=== PATIENT | female | born 1990 | race Hispanic/Latino ===

== ENCOUNTER 2019-09-24 17:47 | Outpatient (CLI) | payer MEDICAID ==
[2019-09-24] MEDS ORDERED: BUTALB/ACETAMINOPHEN/CAFFEINE TAB PO ONE (18:11)
[2019-09-24 19:02] VITALS: BP 128/88
== END 2019-09-24 20:10 | disposition home or self-care (01) ==
LOC: TRG 17:47
PROVIDERS: ATTEND Obstetrics & Gynecology
DX: O47.03 False labor before 37 completed weeks of gestation, third trimester (principal); Z3A.34 34 weeks gestation of pregnancy
CPT/HCPCS: Q0177

== ENCOUNTER 2019-09-26 15:39 | Outpatient (CLI) | payer MEDICAID ==
[2019-09-26] MEDS ORDERED: METOCLOPRAMIDE 10 MG/2 ML INJ IV ONE (16:04)
[2019-09-26] MEDS ORDERED: diphenhydrAMINE 50 MG/ML VIAL IV ONE (16:04)
[2019-09-26 16:50] LABS: Bacteria,Urine 1+ /HPF (Negative); Bilirubin,Urine NEG (Negative); Blood,Urine NEG (Negative); Color,Urine Amber (Yellow); Mucus,Urine 1+ /HPF
[2019-09-26] MEDS: LACTATED RINGERS 1,000 ML IV SCH ×2 (16:54→17:13)
[2019-09-26] MEDS ORDERED: LACTATED RINGERS 1,000 ML IV SCH (17:00)
--- NOTE | 2019-09-26 17:30 | Event Note ---
Date: 09/26/19 Patient reports Migraine relief is the best she had in 5 days, reports pain is down from 7/10 to 4/10 after reglan and benadryl. Pt does not currently have neurologist - referral entered in to office chart and info given to patient. Will continue IVF hydration and d/t home as long as patient continues to have good relief and PIH bloodwork is normal. FHT Cat 1, no ctx noted. pt agrees with plan of care.
[2019-09-26 17:48] LABS: Alanine Aminotransferase 12 units/L (7-56); Uric Acid 5.2 mg/dL (3.5-7.6)
[2019-09-26 17:59] VITALS: BP 117/71
[2019-09-26 18:26] LABS: Hematocrit 34.7 % (30.3-42.9); Hemoglobin 11.8 gm/dl (10.1-14.3); Mean Corpuscular HGB Conc 34 % (30-34); Mean Corpuscular Volume 92 fl (79-97); Platelet Count 177 K/mm3 (140-440); Red Blood Count 3.78 M/mm3 (3.65-5.03); Red Cell Distribution Width 13.2 % (13.2-15.2)
== END 2019-09-26 18:51 | disposition home or self-care (01) ==
LOC: TRG 15:39
PROVIDERS: ATTEND Obstetrics & Gynecology
DX: O99.353 Diseases of the nervous system complicating pregnancy, third trimester (principal); G43.909 Migraine, unspecified, not intractable, without status migrainosus; O47.03 False labor before 37 completed weeks of gestation, third trimester; O99.333 Smoking (tobacco) complicating pregnancy, third trimester; F17.200 Nicotine dependence, unspecified, uncomplicated; Z3A.34 34 weeks gestation of pregnancy
CPT/HCPCS: 36415; 59025; 81001; 82565; 83615; 84450; 84460; 84550; 85027; 87086; 96361; 96374; 96375; J1200; J2765; J7120; 96360

== ENCOUNTER 2019-10-30 07:30 | Inpatient (IN) | payer MEDICAID ==
[2019-11-06] MEDS ORDERED: TERBUTALINE 1 MG/1 ML INJ SUB-Q PRN (14:44)
[2019-11-06] MEDS ORDERED: ePHEDrine SULFATE 50 MG/1 ML INJ IV PRN (14:44)
[2019-11-06] MEDS ORDERED: MINERAL OIL 30 ML ORAL LIQD PO PRN (14:44)
[2019-11-06] MEDS ORDERED: ONDANSETRON 4 MG/2 ML INJ IV PRN (14:54)
[2019-11-06] MEDS ORDERED: OXYTOCIN 20 UNIT/1000ML DRIP 20 UNITS/1,000 ML BAG IV SCH (15:00)
[2019-11-06] MEDS ORDERED: OXYTOCIN DRIP 30 UNITS/500 ML BAG IV SCH (15:00)
[2019-11-06] MEDS ORDERED: AMPICILLIN/NS 2 GM/100 ML 2 GM/100 ML BAG IV ONE (15:05)
--- NOTE | 2019-11-06 15:17 | History and Physical Report ---
History of Present Illness Date of examination: 11/06/19 (IOL d/t Poly per [facility] recommendation) Date of admission: 11/06/19 14:33 Chief complaint: sent from [facility] office for IOL History of present illness: EDC Confirmation: 11/05/2019 Gestational Age: 11 4/7 weeks Past History : 1 Past Medical History: Reviewed history from 01/14/2017 and no changes required: Iccthyosis. 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 Infection History Hx of STD: chlamydia HIV Risk Eval: no Hepatitis B Risk Eval: low risk Personal hx. of genital herpes: no Partner hx. of genital herpes: no Rash, Viral, or Febrile illness since last LMP? no Varicella/Chicken Pox Status: Previous Disease Genetic History Congenital Heart Defect: Mom: no Sri Disease: Mom: no Thalassemia Mom: no Dad: no Neural Tube Defect Mom: no Dad: no Down's Syndrome Mom: no Dad: no Dom-Sachs Mom: no Dad: no Sickle Cell Disease/Trait Mom: no Dad: no Hemophilia Mom: no Dad: no Muscular Dystrophy Mom: no Dad: no Cystic Fibrosis Mom: no Dad: no [place] Chorea Mom: no Dad: no Mental Retardation Mom: no Dad: no Fragile X Mom: no Dad: no Other Genetic/Chromosomal Disorder Mom: no Dad: no Child w/other defect Mom: no Dad: no Enviromental Exposures Xray Exposure: no Medication, drug, or alcohol use since LMP: no Chemical/Other Exposure: no Exposure to Cat Liter: no Hx of Parvovirus (Fifth Disease): no Occupational Exposure to Children: none Active Medications (reviewed today): AMBIEN TABLET (ZOLPIDEM TARTRATE TABS) LEVORA 0.15/30 (28) 0.15-30 MG-MCG ORAL TABLET (LEVONORGESTREL-ETHINYL ESTRAD) 1 po q day as directed LEVORA 0.15/30 (28) 0.15-30 MG-MCG ORAL TABLET (LEVONORGESTREL-ETHINYL ESTRAD) 1 po q day as directed XANAX () Current Allergies (reviewed today): TRAMADOL HCL (TRAMADOL HCL TABS) (Critical) Past History - Obstetrical History Expected Date of Delivery: 11/05/19 Actual Gestation: 40 Week(s) 1 Day(s) : 1 Para: 0 Hx # Term Pregnancies: 0 Number of Pregnancies: 0 Spontaneous Abortions: 0 Induced : 0 Number of Living Children: 0 Medications and Allergies Allergies Allergy/AdvReac Type Severity Reaction Status Date / Time No Known Allergies Allergy Verified 09/26/19 16:03 Home Medications Medication Instructions Recorded Confirmed Last Taken Type Metoclopramide [Reglan] 10 mg PO PRN PRN #30 tab 09/26/19 11/06/19 10/30/19 Rx 10 mg Active Meds: Active Medications Ephedrine Sulfate (Ephedrine Sulfate) 10 mg IV Q2M PRN PRN Reason: Hypotension Oxytocin/Sodium Chloride (Pitocin/Ns 20 Unit/1000ml Drip) 20 units in 1,000 mls @ 125 mls/hr IV DIRECT BATOOL Oxytocin/Sodium Chloride (Pitocin/Ns 30 Unit/500ml) 30 units in 500 mls @ 4 mls/hr IV TITR BATOOL; Protocol Mineral Oil (Mineral Oil) 30 ml PO QHS PRN PRN Reason: Constipation Terbutaline Sulfate (Brethine) 0.25 mg SUB-Q ONCE PRN PRN Reason: Hyperstimulation/Hypertonicity - Physical Exam Breasts: Positive: deferred Cardiovascular: Regular rate, Normal S1, Normal S2 Abdomen: Positive: normal appearance, soft, normal bowel sounds. Negative: distention, tenderness Genitourinary (Female): Positive: normal external genitalia Vulva: both: normal Vagina: Positive: normal moisture. Negative: discharge Cervix: Negative: lesion, discharge Uterus: Positive: normal size, normal contour Adnexa: both: normal Anus/Rectum: Positive: normal perianal skin, heme negative. Negative: rectal mass, hemorrhoids Extremities: Positive: normal Deep Tendon Reflex Grade: Normal +2 - Obstetrical FHR: category 1 Uterine Contraction Monitor Mode: External Cervical Dilatation: 0.5 Cervical Effacement Percentage: 10 station: -4 Uterine Contraction Pattern: Absent Uterine Tone Measurement Phase: Resting Results All other labs normal. GBS POSITIVE HBsAg Screen Negative Negative *1 RPR Non Reactive Non Reactive *2 Rubella Antibodies, IgG 10.50 index Immune >0.99 *3 Non-immune <0.90 Equivocal 0.90 - 0.99 Immune >0.99 ABO Grouping B *4 Rh Factor Positive *5 Please note: Prior records for this patient's ABO / Rh type are not available for additional verification. Antibody Screen Negative Negative *6 WBC 10.5 x10E3/uL 3.4-10.8 *7 RBC 4.33 x10E6/uL 3.77-5.28 *8 Hemoglobin 13.7 g/dL 11.1-15.9 *9 Hematocrit 40.6 % 34.0-46.6 *10 MCV 94 fL 79-97 *11 MCH 31.6 pg 26.6-33.0 *12 MCHC 33.7 g/dL 31.5-35.7 *13 RDW 13.0 % 12.3-15.4 *14 Platelets 237 x10E3/uL 150-450 *15 Neutrophils 77 % Not Estab. *16 Lymphs 14 % Not Estab. *17 Monocytes 6 % Not Estab. *18 Eos 2 % Not Estab. *19 Basos 0 % Not Estab. *20 ! Immature Cells <No Reported Value> *21 Neutrophils (Absolute) [H] 8.1 x10E3/uL 1.4-7.0 *22 Lymphs (Absolute) 1.5 x10E3/uL 0.7-3.1 *23 Monocytes(Absolute) 0.7 x10E3/uL 0.1-0.9 *24 Eos (Absolute) 0.2 x10E3/uL 0.0-0.4 *25 Baso (Absolute) 0.0 x10E3/uL 0.0-0.2 *26 ! Immature Granulocytes 1 % Not Estab. *27 ! Immature Grans (Abs) 0.1 x10E3/uL 0.0-0.1 *28 ! NRBC <No Reported Value> *29 Hematology Comments: <No Reported Value> *30 Tests: (2) AFP Tetra ([id number]) ! Results Report *31 ! Test Results: *Screen Negative* *32 ! Gest. Age on Collection Date 16.1 WEEKS *33 ! Gestat. Age Based On LMP *34 01/30/2019 ! M[age] *35 ! Race Other *36 ! Weight 148 lbs *37 ! Insulin Dep Diabetes No *38 ! Multiple Gestation No *39 ! AFP Value 52.5 ng/mL *40 ! AFP MoM 1.59 *41 ! hCG Value 94135 mIU/mL *42 ! hCG MoM 1.70 *43 ! uE3 Value 0.66 ng/mL *44 ! uE3 MoM 0.77 *45 ! EMILIA Value 403.06 pg/mL *46 ! EMILIA MoM 2.28 *47 ! OSBR Risk 1 IN 5 *48 ! DSR (Second Trimester) 1 IN 671 *49 ! DSR (By Age) 1 IN 544 *50 ! T18 Risk Not increased *51 ! T18 (By Age) 1:9 *52 ! Interpretation NL42 *53 Interpretation: Screen Negative This result is screen negative for OSB, Down Syndrome and Trisomy 18. The AFP MoM and patient specific risks calculated are based on the gestational age and the clinical information provided. This test can identify up to 80% of open neural tube defects. Closed neural tube defects and some open defects may not be detected by this test. The combination of maternal age, AFP, hCG, uE3, and EMILIA identifies 75-80% of Down Syndrome. The combination of maternal age, AFP, hCG and uE3 identifies 60% of Trisomy 18 pregnancies. The [employer] recommends amniocentesis be offered to women age 35 and older. Recalculations are not recommended when gestational dating by LMP and ultrasound are within 10 days. ! Comments: [facility] *54 Jazmyne Martel, Ph.D., [facility] [employer] References: Available Upon Request. Multiples Of Median Cutoffs Abbreviation Definitions For AFP Elevations IDD- Insulin Dep Diabetes Carey 2.5 Black 2.8 OSBR- Open Spina Bifida IDD 2.0 Twins 4.5 Risk DSR Cutoff 1:270 DSR- Down Syndrome Risk T18 Cutoff 1:100 T18- Trisomy 18 Down Syndrome and Trisomy 18 screening are considered Investigational For further inquiries contact [facility] at [phone]. Tests: (3) HB Solu + Rflx Fra ([id number]) Hemoglobin (Hgb) Solubility Negative Negative *55 Tests: (4) Panel [id number] ([id number]) HIV Screen 4th Generation wRfx Non Reactive Non Reactive *56 Tests: (5) HCV Ab w/Rflx to Verification ([id number]) ! HCV Ab 0.1 s/co ratio 0.0-0.9 *57 Tests: (6) Comment: ([id number]) ! Comment: [facility] *58 Non reactive HCV antibody screen is consistent with no HCV infection, unless recent infection is suspected or other evidence exists to indicate HCV infection. Tests: (7) Urine Culture, Routine ([id number]) Urine Culture, Routine [A] Final report *59 Tests: (8) Result ([id number]) ! Result 1 [A] Escherichia coli *60 Greater than 100,000 colony forming units per mL Assessment and Plan 29yo here for IOL due to polyhydramnios. Dr. Delgado aware. GBS + All orders in EMR - Patient Problems (1) Group B Streptococcus carrier state affecting Onset Date: ~11/06/19 Current Visit: Yes Status: Acute Plan to address problem: Will treat per protocol in active labor (2) Polyhydramnios affecting in third trimester Onset Date: ~11/06/19 Current Visit: Yes Status: Acute Plan to address problem: Sent from [facility] office for IOL due to Poly
[2019-11-06] MEDS ORDERED: LIDOCAINE (2%) 20 MG/1 ML VIAL 20 ML MDV INFILTRATI ONE (15:44)
[2019-11-06 16:40] LABS: Hematocrit 34.9 % (30.3-42.9); Hemoglobin 12.1 gm/dl (10.1-14.3); Mean Corpuscular HGB Conc 35 % (30-34); Mean Corpuscular Volume 90 fl (79-97); Platelet Count 231 K/mm3 (140-440); Red Cell Distribution Width 13.7 % (13.2-15.2)
[2019-11-06] MEDS ORDERED: DINOPROSTONE 10 MG VAG SUPP VG ONE ×2 (17:37→18:00)
[2019-11-06] MEDS: LACTATED RINGERS 1,000 ML IV SCH (17:49)
[2019-11-06] MEDS ORDERED: ZOLPIDEM 5 MG TAB PO PRN (19:48)
[2019-11-06] MEDS: AMPICILLIN/NS 1 GM/50 ML 1 GM/50 ML BAG IV SCH ×2 (20:53→22:22)
[2019-11-07] MEDS: fentaNYL 100 MCG/2 ML INJ IV PRN ×3 (00:23→23:52)
[2019-11-07] MEDS: AMPICILLIN/NS 1 GM/50 ML 1 GM/50 ML BAG IV SCH ×2 (02:16→06:30)
[2019-11-07] MEDS: LACTATED RINGERS 1,000 ML IV SCH (06:50)
--- NOTE | 2019-11-07 06:56 | Progress Note ---
Assessment and Plan cervidil removed, pt to have breakfast and AM care then start pitocin. 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 discussed serial IOL expectations with patient. Will reevaluate PRN. - Patient Problems (1) 40 weeks gestation of Current Visit: Yes Status: Acute (2) Group B Streptococcus carrier state affecting Onset Date: ~11/06/19 Current Visit: Yes Status: Acute Plan to address problem: Ampicillin q4hrs once in active labor (3) Ichthyosis Current Visit: Yes Status: Acute (4) Polyhydramnios affecting in third trimester Onset Date: ~11/06/19 Current Visit: Yes Status: Acute Subjective - Subjective Date of service: 11/07/19 Principal diagnosis: IUP @ 40+2, IOL for poly Patient reports: movement normal, contractions, no new complaints, no loss of fluid, no vaginal bleeding Objective - Vital Signs Vital Signs: Vital Signs - 12hr 11/06/19 11/06/19 11/06/19 19:11 20:00 20:12 Temperature 97.9 F Pulse Rate 81 78 78 Respiratory 18 Rate Blood Pressure 124/81 119/80 Blood Pressure 119/80 [Left] O2 Sat by Pulse Oximetry 11/06/19 11/06/19 11/06/19 21:10 21:12 21:15 Temperature Pulse Rate 73 80 85 Respiratory Rate Blood Pressure 121/74 Blood Pressure [Left] O2 Sat by Pulse 97 96 Oximetry 11/06/19 11/06/19 11/06/19 21:20 21:22 21:25 Temperature Pulse Rate 80 72 84 Respiratory Rate Blood Pressure Blood Pressure [Left] O2 Sat by Pulse 95 94 96 Oximetry 11/06/19 11/06/19 11/06/19 21:30 21:35 21:40 Temperature Pulse Rate 76 77 83 Respiratory Rate Blood Pressure Blood Pressure [Left] O2 Sat by Pulse 97 97 96 Oximetry 11/06/19 11/06/19 11/06/19 21:45 21:50 21:55 Temperature Pulse Rate 73 86 79 Respiratory Rate Blood Pressure Blood Pressure [Left] O2 Sat by Pulse 96 95 96 Oximetry 11/06/19 11/06/19 11/06/19 22:00 22:03 22:05 Temperature Pulse Rate 77 79 76 Respiratory Rate Blood Pressure Blood Pressure [Left] O2 Sat by Pulse 96 94 94 Oximetry 11/06/19 11/06/19 11/06/19 22:10 22:13 22:15 Temperature Pulse Rate 75 75 90 Respiratory Rate Blood Pressure 118/81 Blood Pressure [Left] O2 Sat by Pulse 96 95 Oximetry 11/06/19 11/06/19 11/06/19 22:17 22:20 22:22 Temperature Pulse Rate 82 82 85 Respiratory Rate Blood Pressure Blood Pressure [Left] O2 Sat by Pulse 94 95 94 Oximetry 11/06/19 11/06/19 11/06/19 22:25 22:31 22:39 Temperature Pulse Rate 100 H 72 97 H Respiratory Rate Blood Pressure Blood Pressure [Left] O2 Sat by Pulse 94 97 96 Oximetry 11/06/19 11/06/19 11/06/19 22:44 22:49 22:54 Temperature Pulse Rate 74 80 77 Respiratory Rate Blood Pressure Blood Pressure [Left] O2 Sat by Pulse 97 98 96 Oximetry 11/06/19 11/06/19 11/06/19 22:59 23:04 23:09 Temperature Pulse Rate 87 89 81 Respiratory Rate Blood Pressure Blood Pressure [Left] O2 Sat by Pulse 96 96 97 Oximetry 11/06/19 11/06/19 11/06/19 23:13 23:14 23:16 Temperature Pulse Rate 77 84 74 Respiratory Rate Blood Pressure 131/81 Blood Pressure [Left] O2 Sat by Pulse 97 94 Oximetry 11/06/19 11/06/19 11/06/19 23:19 23:24 23:26 Temperature Pulse Rate 86 73 73 Respiratory Rate Blood Pressure Blood Pressure [Left] O2 Sat by Pulse 95 95 94 Oximetry 11/06/19 11/06/19 11/06/19 23:29 23:34 23:36 Temperature Pulse Rate 78 76 76 Respiratory Rate Blood Pressure Blood Pressure [Left] O2 Sat by Pulse 95 97 94 Oximetry 11/06/19 11/06/19 11/06/19 23:39 23:41 23:44 Temperature Pulse Rate 73 75 80 Respiratory Rate Blood Pressure Blood Pressure [Left] O2 Sat by Pulse 96 94 95 Oximetry 11/06/19 11/06/19 11/06/19 23:47 23:49 23:54 Temperature Pulse Rate 74 79 69 Respiratory Rate Blood Pressure Blood Pressure [Left] O2 Sat by Pulse 93 95 96 Oximetry 11/06/19 11/06/19 11/07/19 23:56 23:59 00:00 Temperature 98 F Pulse Rate 75 72 71 Respiratory 16 Rate Blood Pressure Blood Pressure 128/74 [Left] O2 Sat by Pulse 93 94 98 Oximetry 11/07/19 11/07/19 11/07/19 00:01 00:04 00:09 Temperature Pulse Rate 72 80 77 Respiratory Rate Blood Pressure Blood Pressure [Left] O2 Sat by Pulse 94 93 94 Oximetry 11/07/19 11/07/19 11/07/19 00:13 00:14 00:19 Temperature Pulse Rate 71 75 77 Respiratory Rate Blood Pressure 128/74 Blood Pressure [Left] O2 Sat by Pulse 94 95 Oximetry 11/07/19 11/07/19 11/07/19 00:20 00:23 00:24 Temperature Pulse Rate 77 73 Respiratory 18 Rate Blood Pressure Blood Pressure [Left] O2 Sat by Pulse 94 95 Oximetry 11/07/19 11/07/19 11/07/19 00:26 00:29 00:34 Temperature Pulse Rate 75 75 72 Respiratory Rate Blood Pressure Blood Pressure [Left] O2 Sat by Pulse 94 91 93 Oximetry 11/07/19 11/07/19 11/07/19 00:39 00:43 00:44 Temperature Pulse Rate 108 H 77 103 H Respiratory Rate Blood Pressure Blood Pressure [Left] O2 Sat by Pulse 93 94 93 Oximetry 11/07/19 11/07/19 11/07/19 00:49 00:53 00:54 Temperature Pulse Rate 90 74 77 Respiratory Rate Blood Pressure Blood Pressure [Left] O2 Sat by Pulse 93 94 94 Oximetry 11/07/19 11/07/19 11/07/19 00:59 01:04 01:05 Temperature Pulse Rate 95 H 77 63 Respiratory Rate Blood Pressure Blood Pressure [Left] O2 Sat by Pulse 93 95 94 Oximetry 11/07/19 11/07/19 11/07/19 01:09 01:11 01:12 Temperature Pulse Rate 71 95 H 73 Respiratory Rate Blood Pressure 111/57 Blood Pressure [Left] O2 Sat by Pulse 93 94 Oximetry 11/07/19 11/07/19 11/07/19 01:14 01:16 01:19 Temperature Pulse Rate 77 82 75 Respiratory Rate Blood Pressure Blood Pressure [Left] O2 Sat by Pulse 95 94 93 Oximetry 11/07/19 11/07/19 11/07/19 01:21 01:24 01:29 Temperature Pulse Rate 79 78 73 Respiratory Rate Blood Pressure Blood Pressure [Left] O2 Sat by Pulse 94 94 93 Oximetry 11/07/19 11/07/19 11/07/19 01:34 01:39 01:40 Temperature Pulse Rate 75 79 80 Respiratory Rate Blood Pressure Blood Pressure [Left] O2 Sat by Pulse 94 94 94 Oximetry 11/07/19 11/07/19 11/07/19 01:44 01:45 01:49 Temperature Pulse Rate 68 71 65 Respiratory Rate Blood Pressure Blood Pressure [Left] O2 Sat by Pulse 95 94 95 Oximetry 11/07/19 11/07/19 11/07/19 01:50 01:54 01:57 Temperature Pulse Rate 67 71 82 Respiratory Rate Blood Pressure Blood Pressure [Left] O2 Sat by Pulse 93 95 94 Oximetry 11/07/19 11/07/19 11/07/19 01:59 02:04 02:09 Temperature Pulse Rate 71 81 70 Respiratory Rate Blood Pressure Blood Pressure [Left] O2 Sat by Pulse 93 93 94 Oximetry 11/07/19 11/07/19 11/07/19 02:12 02:14 02:16 Temperature Pulse Rate 68 70 75 Respiratory Rate Blood Pressure 105/67 Blood Pressure [Left] O2 Sat by Pulse 93 94 Oximetry 11/07/19 11/07/19 11/07/19 02:19 02:22 02:24 Temperature Pulse Rate 70 67 72 Respiratory Rate Blood Pressure Blood Pressure [Left] O2 Sat by Pulse 96 94 95 Oximetry 11/07/19 11/07/19 11/07/19 02:27 02:29 02:34 Temperature Pulse Rate 69 67 74 Respiratory Rate Blood Pressure Blood Pressure [Left] O2 Sat by Pulse 94 93 93 Oximetry 11/07/19 11/07/19 11/07/19 02:39 02:44 02:49 Temperature Pulse Rate 71 80 79 Respiratory Rate Blood Pressure Blood Pressure [Left] O2 Sat by Pulse 93 93 93 Oximetry 11/07/19 11/07/19 11/07/19 02:54 02:58 02:59 Temperature Pulse Rate 77 79 93 H Respiratory Rate Blood Pressure Blood Pressure [Left] O2 Sat by Pulse 93 94 94 Oximetry 11/07/19 11/07/19 11/07/19 03:03 03:04 03:09 Temperature Pulse Rate 84 78 80 Respiratory Rate Blood Pressure Blood Pressure [Left] O2 Sat by Pulse 94 95 94 Oximetry 11/07/19 11/07/19 11/07/19 03:13 03:14 03:16 Temperature Pulse Rate 67 70 77 Respiratory Rate Blood Pressure 110/68 Blood Pressure [Left] O2 Sat by Pulse 94 94 Oximetry 11/07/19 11/07/19 11/07/19 03:19 03:22 03:24 Temperature Pulse Rate 72 72 81 Respiratory Rate Blood Pressure Blood Pressure [Left] O2 Sat by Pulse 93 94 92 Oximetry 11/07/19 11/07/19 11/07/19 03:29 03:34 03:37 Temperature Pulse Rate 81 89 77 Respiratory Rate Blood Pressure Blood Pressure [Left] O2 Sat by Pulse 93 91 94 Oximetry 11/07/19 11/07/19 11/07/19 03:39 03:44 03:49 Temperature Pulse Rate 85 72 90 Respiratory Rate Blood Pressure Blood Pressure [Left] O2 Sat by Pulse 93 93 94 Oximetry 11/07/19 11/07/19 11/07/19 03:54 03:59 04:00 Temperature 98 F Pulse Rate 71 73 67 Respiratory 18 Rate Blood Pressure Blood Pressure 110/68 [Left] O2 Sat by Pulse 93 96 100 Oximetry 11/07/19 11/07/19 11/07/19 04:02 04:04 04:08 Temperature Pulse Rate 66 64 67 Respiratory Rate Blood Pressure Blood Pressure [Left] O2 Sat by Pulse 93 95 94 Oximetry 11/07/19 11/07/19 11/07/19 04:09 04:12 04:13 Temperature Pulse Rate 74 71 75 Respiratory Rate Blood Pressure 105/63 Blood Pressure [Left] O2 Sat by Pulse 94 94 Oximetry 11/07/19 11/07/19 11/07/19 04:14 04:19 04:20 Temperature Pulse Rate 75 71 77 Respiratory Rate Blood Pressure Blood Pressure [Left] O2 Sat by Pulse 93 95 94 Oximetry 11/07/19 11/07/19 11/07/19 04:24 04:27 04:29 Temperature Pulse Rate 69 71 66 Respiratory Rate Blood Pressure Blood Pressure [Left] O2 Sat by Pulse 93 94 95 Oximetry 11/07/19 11/07/19 11/07/19 04:32 04:34 04:39 Temperature Pulse Rate 80 69 77 Respiratory Rate Blood Pressure Blood Pressure [Left] O2 Sat by Pulse 94 94 94 Oximetry 11/07/19 11/07/19 11/07/19 04:44 04:46 04:49 Temperature Pulse Rate 71 82 66 Respiratory Rate Blood Pressure Blood Pressure [Left] O2 Sat by Pulse 94 94 95 Oximetry 11/07/19 11/07/19 11/07/19 04:54 04:56 04:59 Temperature Pulse Rate 72 67 72 Respiratory Rate Blood Pressure Blood Pressure [Left] O2 Sat by Pulse 93 94 93 Oximetry 11/07/19 11/07/19 11/07/19 05:04 05:07 05:09 Temperature Pulse Rate 84 74 72 Respiratory Rate Blood Pressure Blood Pressure [Left] O2 Sat by Pulse 93 94 93 Oximetry 11/07/19 11/07/19 11/07/19 05:13 05:14 05:19 Temperature Pulse Rate 68 70 63 Respiratory Rate Blood Pressure 113/67 Blood Pressure [Left] O2 Sat by Pulse 93 94 Oximetry 11/07/19 11/07/19 11/07/19 05:21 05:24 05:28 Temperature Pulse Rate 65 68 71 Respiratory Rate Blood Pressure Blood Pressure [Left] O2 Sat by Pulse 94 94 94 Oximetry 11/07/19 11/07/19 11/07/19 05:29 05:34 05:35 Temperature Pulse Rate 72 67 68 Respiratory Rate Blood Pressure Blood Pressure [Left] O2 Sat by Pulse 94 94 94 Oximetry 11/07/19 11/07/19 11/07/19 05:39 05:42 05:44 Temperature Pulse Rate 77 74 67 Respiratory Rate Blood Pressure Blood Pressure [Left] O2 Sat by Pulse 95 94 95 Oximetry 11/07/19 11/07/19 11/07/19 05:47 05:49 05:54 Temperature Pulse Rate 68 67 68 Respiratory Rate Blood Pressure Blood Pressure [Left] O2 Sat by Pulse 94 94 94 Oximetry 11/07/19 11/07/19 11/07/19 05:59 06:01 06:04 Temperature Pulse Rate 61 64 66 Respiratory Rate Blood Pressure Blood Pressure [Left] O2 Sat by Pulse 94 94 92 Oximetry 11/07/19 11/07/19 11/07/19 06:09 06:13 06:14 Temperature Pulse Rate 72 67 65 Respiratory Rate Blood Pressure 109/67 Blood Pressure [Left] O2 Sat by Pulse 93 93 92 Oximetry 11/07/19 11/07/19 11/07/19 06:18 06:19 06:24 Temperature Pulse Rate 77 75 71 Respiratory Rate Blood Pressure Blood Pressure [Left] O2 Sat by Pulse 94 95 94 Oximetry 11/07/19 11/07/19 11/07/19 06:29 06:34 06:41 Temperature Pulse Rate 71 70 81 Respiratory Rate Blood Pressure Blood Pressure [Left] O2 Sat by Pulse 93 92 97 Oximetry 11/07/19 11/07/19 11/07/19 06:46 06:49 06:51 Temperature Pulse Rate 64 72 103 H Respiratory Rate Blood Pressure Blood Pressure [Left] O2 Sat by Pulse 97 90 95 Oximetry - Exam Breasts: normal Cardiovascular: Regular rate Lungs: Normal air movement Abdomen: Present: normal appearance, soft Vulva: both: normal Uterus: Present: normal, fundal height above umbilicus FHR: auscultation normal Uterine Contraction Monitor Mode: External Uterine Contraction Pattern: Irregular - Labs Labs: Abnormal Labs 11/06/19 16:25 MCHC 35 H Laboratory Results - last 24 hr 11/06/19 11/06/19 16:25 16:25 WBC 10.9 RBC 3.90 Hgb 12.1 Hct 34.9 MCV 90 MCH 31 MCHC 35 H RDW 13.7 Plt Count 231 Blood Type B POSITIVE Antibody Screen Negative
[2019-11-07] MEDS ORDERED: OXYTOCIN DRIP 30 UNITS/500 ML BAG IV SCH (08:00)
--- NOTE | 2019-11-07 12:58 | Event Note ---
Date: 11/07/19 pitocin infusing @ 16mU, pt is comfortable and unaware of ctx. ctx occurring approx q2-4 minutes. continue current management will reevaluate this afternoon unless there is a change in her status.
[2019-11-07] MEDS ORDERED: ZOLPIDEM 5 MG TAB PO PRN (16:46)
--- NOTE | 2019-11-07 16:46 | Progress Note ---
Assessment and Plan patient resting comfortably except for c/o back pain. rn recently checked patient w/o change. pt declines SVE at this time. Will d/c pitocin, allow ambulation and regular dinner. Plan for repeat cervidil tonight. patient agreeable to plan. all questions addressed. plan reviewed with RN. - Patient Problems (1) 40 weeks gestation of Current Visit: Yes Status: Acute (2) Group B Streptococcus carrier state affecting Onset Date: ~11/06/19 Current Visit: Yes Status: Acute Plan to address problem: Ampicillin q4hrs once in active labor (3) Ichthyosis Current Visit: Yes Status: Acute (4) Polyhydramnios affecting in third trimester Onset Date: ~11/06/19 Current Visit: Yes Status: Acute Subjective - Subjective Date of service: 11/07/19 Principal diagnosis: IUP @ 40+2, IOL for poly Patient reports: movement normal, contractions, no new complaints, no loss of fluid, no vaginal bleeding Objective - Vital Signs Vital Signs: Vital Signs - 12hr 11/07/19 11/07/19 11/07/19 04:44 04:46 04:49 Temperature Pulse Rate 71 82 66 Respiratory Rate Blood Pressure Blood Pressure [Left] O2 Sat by Pulse 94 94 95 Oximetry 11/07/19 11/07/19 11/07/19 04:54 04:56 04:59 Temperature Pulse Rate 72 67 72 Respiratory Rate Blood Pressure Blood Pressure [Left] O2 Sat by Pulse 93 94 93 Oximetry 11/07/19 11/07/19 11/07/19 05:04 05:07 05:09 Temperature Pulse Rate 84 74 72 Respiratory Rate Blood Pressure Blood Pressure [Left] O2 Sat by Pulse 93 94 93 Oximetry 11/07/19 11/07/19 11/07/19 05:13 05:14 05:19 Temperature Pulse Rate 68 70 63 Respiratory Rate Blood Pressure 113/67 Blood Pressure [Left] O2 Sat by Pulse 93 94 Oximetry 11/07/19 11/07/19 11/07/19 05:21 05:24 05:28 Temperature Pulse Rate 65 68 71 Respiratory Rate Blood Pressure Blood Pressure [Left] O2 Sat by Pulse 94 94 94 Oximetry 11/07/19 11/07/19 11/07/19 05:29 05:34 05:35 Temperature Pulse Rate 72 67 68 Respiratory Rate Blood Pressure Blood Pressure [Left] O2 Sat by Pulse 94 94 94 Oximetry 11/07/19 11/07/19 11/07/19 05:39 05:42 05:44 Temperature Pulse Rate 77 74 67 Respiratory Rate Blood Pressure Blood Pressure [Left] O2 Sat by Pulse 95 94 95 Oximetry 11/07/19 11/07/19 11/07/19 05:47 05:49 05:54 Temperature Pulse Rate 68 67 68 Respiratory Rate Blood Pressure Blood Pressure [Left] O2 Sat by Pulse 94 94 94 Oximetry 11/07/19 11/07/19 11/07/19 05:59 06:01 06:04 Temperature Pulse Rate 61 64 66 Respiratory Rate Blood Pressure Blood Pressure [Left] O2 Sat by Pulse 94 94 92 Oximetry 11/07/19 11/07/19 11/07/19 06:09 06:13 06:14 Temperature Pulse Rate 72 67 65 Respiratory Rate Blood Pressure 109/67 Blood Pressure [Left] O2 Sat by Pulse 93 93 92 Oximetry 11/07/19 11/07/19 11/07/19 06:18 06:19 06:24 Temperature Pulse Rate 77 75 71 Respiratory Rate Blood Pressure Blood Pressure [Left] O2 Sat by Pulse 94 95 94 Oximetry 11/07/19 11/07/19 11/07/19 06:29 06:34 06:41 Temperature Pulse Rate 71 70 81 Respiratory Rate Blood Pressure Blood Pressure [Left] O2 Sat by Pulse 93 92 97 Oximetry 11/07/19 11/07/19 11/07/19 06:46 06:49 06:51 Temperature Pulse Rate 64 72 103 H Respiratory Rate Blood Pressure Blood Pressure [Left] O2 Sat by Pulse 97 90 95 Oximetry 11/07/19 11/07/19 11/07/19 06:56 07:01 07:06 Temperature Pulse Rate 71 75 81 Respiratory Rate Blood Pressure Blood Pressure [Left] O2 Sat by Pulse 96 97 94 Oximetry 11/07/19 11/07/19 11/07/19 07:11 07:12 07:16 Temperature 98.1 F Pulse Rate 98 H 96 H 67 Respiratory 18 Rate Blood Pressure 101/66 Blood Pressure 101/66 [Left] O2 Sat by Pulse 95 96 96 Oximetry 11/07/19 11/07/19 11/07/19 07:17 07:21 07:23 Temperature Pulse Rate 68 90 79 Respiratory Rate Blood Pressure Blood Pressure [Left] O2 Sat by Pulse 94 94 94 Oximetry 11/07/19 11/07/19 11/07/19 07:26 07:31 07:32 Temperature Pulse Rate 85 71 72 Respiratory Rate Blood Pressure Blood Pressure [Left] O2 Sat by Pulse 96 95 94 Oximetry 11/07/19 11/07/19 11/07/19 07:36 07:41 07:46 Temperature Pulse Rate 78 73 79 Respiratory Rate Blood Pressure Blood Pressure [Left] O2 Sat by Pulse 94 95 95 Oximetry 11/07/19 11/07/19 11/07/19 07:47 07:51 07:58 Temperature Pulse Rate 71 84 89 Respiratory Rate Blood Pressure Blood Pressure [Left] O2 Sat by Pulse 94 95 97 Oximetry 11/07/19 11/07/19 11/07/19 08:02 08:03 08:57 Temperature Pulse Rate 78 81 81 Respiratory Rate Blood Pressure Blood Pressure [Left] O2 Sat by Pulse 94 96 95 Oximetry 11/07/19 11/07/19 11/07/19 09:02 09:07 09:08 Temperature Pulse Rate 82 77 81 Respiratory Rate Blood Pressure Blood Pressure [Left] O2 Sat by Pulse 94 95 92 Oximetry 11/07/19 11/07/19 11/07/19 09:10 09:12 09:13 Temperature Pulse Rate 88 80 99 H Respiratory Rate Blood Pressure 99/62 88/55 Blood Pressure [Left] O2 Sat by Pulse 94 84 Oximetry 11/07/19 11/07/19 11/07/19 09:17 09:20 09:22 Temperature Pulse Rate 78 77 82 Respiratory Rate Blood Pressure Blood Pressure [Left] O2 Sat by Pulse 94 94 96 Oximetry 11/07/19 11/07/19 11/07/19 09:26 09:27 09:30 Temperature Pulse Rate 82 80 78 Respiratory Rate Blood Pressure 101/56 Blood Pressure [Left] O2 Sat by Pulse 93 93 Oximetry 11/07/19 11/07/19 11/07/19 09:32 09:37 09:42 Temperature Pulse Rate 74 76 80 Respiratory Rate Blood Pressure Blood Pressure [Left] O2 Sat by Pulse 92 93 92 Oximetry 11/07/19 11/07/19 11/07/19 09:44 09:48 09:52 Temperature Pulse Rate 73 78 81 Respiratory Rate Blood Pressure Blood Pressure [Left] O2 Sat by Pulse 94 93 95 Oximetry 11/07/19 11/07/19 11/07/19 09:53 09:58 09:59 Temperature Pulse Rate 85 74 82 Respiratory Rate Blood Pressure Blood Pressure [Left] O2 Sat by Pulse 94 94 94 Oximetry 11/07/19 11/07/19 11/07/19 10:03 10:04 10:07 Temperature Pulse Rate 75 79 76 Respiratory Rate Blood Pressure Blood Pressure [Left] O2 Sat by Pulse 95 94 94 Oximetry 11/07/19 11/07/19 11/07/19 10:12 10:13 10:18 Temperature Pulse Rate 72 69 71 Respiratory Rate Blood Pressure 101/55 Blood Pressure [Left] O2 Sat by Pulse 94 94 94 Oximetry 11/07/19 11/07/19 11/07/19 10:20 10:22 10:27 Temperature Pulse Rate 67 71 71 Respiratory Rate Blood Pressure Blood Pressure [Left] O2 Sat by Pulse 94 94 94 Oximetry 11/07/19 11/07/19 11/07/19 10:28 10:32 10:36 Temperature Pulse Rate 70 71 75 Respiratory Rate Blood Pressure Blood Pressure [Left] O2 Sat by Pulse 94 94 94 Oximetry 11/07/19 11/07/19 11/07/19 10:38 10:41 10:42 Temperature Pulse Rate 73 69 69 Respiratory Rate Blood Pressure Blood Pressure [Left] O2 Sat by Pulse 94 94 94 Oximetry 11/07/19 11/07/19 11/07/19 10:48 10:50 10:53 Temperature Pulse Rate 69 76 74 Respiratory Rate Blood Pressure Blood Pressure [Left] O2 Sat by Pulse 94 94 94 Oximetry 11/07/19 11/07/19 11/07/19 10:56 10:58 11:02 Temperature Pulse Rate 73 74 72 Respiratory Rate Blood Pressure Blood Pressure [Left] O2 Sat by Pulse 94 94 94 Oximetry 11/07/19 11/07/19 11/07/19 11:08 11:09 11:13 Temperature Pulse Rate 73 98 H 71 Respiratory Rate Blood Pressure Blood Pressure [Left] O2 Sat by Pulse 94 93 93 Oximetry 11/07/19 11/07/19 11/07/19 11:14 11:16 11:17 Temperature Pulse Rate 69 69 72 Respiratory Rate Blood Pressure 107/56 Blood Pressure [Left] O2 Sat by Pulse 94 93 Oximetry 11/07/19 11/07/19 11/07/19 11:23 11:28 13:12 Temperature Pulse Rate 80 85 68 Respiratory Rate Blood Pressure 112/72 Blood Pressure [Left] O2 Sat by Pulse 92 93 Oximetry 11/07/19 11/07/19 11/07/19 14:13 15:13 15:17 Temperature Pulse Rate 74 70 69 Respiratory Rate Blood Pressure 119/80 Blood Pressure [Left] O2 Sat by Pulse 98 93 Oximetry 11/07/19 11/07/19 11/07/19 15:18 15:26 15:27 Temperature Pulse Rate 81 73 75 Respiratory Rate Blood Pressure Blood Pressure [Left] O2 Sat by Pulse 96 94 95 Oximetry 11/07/19 11/07/19 11/07/19 15:32 15:34 15:37 Temperature Pulse Rate 77 74 79 Respiratory Rate Blood Pressure Blood Pressure [Left] O2 Sat by Pulse 94 93 92 Oximetry 11/07/19 11/07/19 11/07/19 15:41 15:42 15:47 Temperature Pulse Rate 68 75 72 Respiratory Rate Blood Pressure Blood Pressure [Left] O2 Sat by Pulse 93 94 95 Oximetry 11/07/19 11/07/19 11/07/19 15:49 15:52 15:56 Temperature Pulse Rate 69 67 72 Respiratory Rate Blood Pressure Blood Pressure [Left] O2 Sat by Pulse 94 96 94 Oximetry 11/07/19 11/07/19 11/07/19 15:57 16:01 16:02 Temperature Pulse Rate 71 64 62 Respiratory Rate Blood Pressure Blood Pressure [Left] O2 Sat by Pulse 93 94 94 Oximetry 11/07/19 11/07/19 11/07/19 16:07 16:12 16:13 Temperature Pulse Rate 66 63 70 Respiratory Rate Blood Pressure 105/70 Blood Pressure [Left] O2 Sat by Pulse 97 95 Oximetry 11/07/19 11/07/19 11/07/19 16:17 16:19 16:22 Temperature Pulse Rate 62 62 59 L Respiratory Rate Blood Pressure Blood Pressure [Left] O2 Sat by Pulse 96 94 96 Oximetry 11/07/19 11/07/19 11/07/19 16:25 16:27 16:31 Temperature Pulse Rate 61 64 62 Respiratory Rate Blood Pressure Blood Pressure [Left] O2 Sat by Pulse 94 95 94 Oximetry 11/07/19 11/07/19 16:32 16:37 Temperature Pulse Rate 63 62 Respiratory Rate Blood Pressure Blood Pressure [Left] O2 Sat by Pulse 93 97 Oximetry - Exam Breasts: normal Cardiovascular: Regular rate Lungs: Clear to auscultation, Normal air movement Abdomen: Present: normal appearance, soft Vulva: both: normal Uterus: Present: normal, fundal height above umbilicus FHR: category 1 Uterine Contraction Monitor Mode: External Uterine Contraction Frequency (min): 2-3 Uterine Contraction Duration: 60 Uterine Contraction Pattern: Regular Uterine Tone Measurement Phase: Contraction Uterine Contraction Intensity: Moderate Extremities: normal Deep Tendon Reflex Grade: Normal +2 - Labs Labs: Abnormal Labs 11/06/19 16:25 MCHC 35 H Laboratory Results - last 24 hr 11/06/19 16:25 Blood Type B POSITIVE Antibody Screen Negative
[2019-11-07] MEDS ORDERED: DINOPROSTONE 10 MG VAG SUPP VG ONE (19:00)
--- NOTE | 2019-11-08 08:45 | Progress Note ---
Assessment and Plan - Patient Problems (1) 40 weeks gestation of Current Visit: Yes Status: Acute (2) Group B Streptococcus carrier state affecting Onset Date: ~11/06/19 Current Visit: Yes Status: Acute (3) Ichthyosis Current Visit: Yes Status: Acute (4) Polyhydramnios affecting in third trimester Onset Date: ~11/06/19 Current Visit: Yes Status: Acute Plan to address problem: -Day #2 of IOL -pt desires to continue IOL at this time -no progression since admission. I d/w failed iol and indications for operative delivery via c/s. Pt agrees with plan of care at this time and states that if a section is indicated she is agreeable to it. Will closely monitor and nino pitocin at this time. (5) Smoker Current Visit: Yes Status: Acute (6) Migraine Current Visit: No Status: Acute Subjective - Subjective Date of service: 11/08/19 Principal diagnosis: IUP @ 40+3, IOL for poly Interval history: Day#2 of IOL. I d/w plan of care at this time. Cx remains unchanged after second cervidil. Failed IOL and indications for operative delivery were also d/w pt. Pt expressed understanding. Pt desires at this time to continue the IOL. Will allow pericare and breakfast and then resume pitocin. Pt agrees with plan of care. Patient reports: movement normal, contractions, no new complaints, no loss of fluid, no vaginal bleeding Objective - Vital Signs Vital Signs: Vital Signs - 12hr 11/07/19 11/07/19 11/08/19 21:13 22:12 00:12 Temperature Pulse Rate 73 68 107 H Respiratory Rate Blood Pressure 127/70 134/71 114/76 Blood Pressure [Left] 11/08/19 11/08/19 11/08/19 02:13 03:13 05:12 Temperature Pulse Rate 80 84 82 Respiratory Rate Blood Pressure 95/55 121/71 116/72 Blood Pressure [Left] 11/08/19 11/08/19 11/08/19 06:13 07:34 07:39 Temperature 98.6 F Pulse Rate 84 69 69 Respiratory 15 Rate Blood Pressure 129/76 109/58 Blood Pressure 109/50 [Left] - Exam FHR: category 1 Cervical Dilatation: 1 Cervical Effacement Percentage: 50 station: -3 Uterine Contraction Pattern: Irregular - Labs Labs: Abnormal Labs 11/06/19 16:25 MCHC 35 H
[2019-11-08] MEDS: OXYTOCIN DRIP 30 UNITS/500 ML BAG IV SCH ×4 (10:25→12:33)
[2019-11-08] MEDS: fentaNYL 100 MCG/2 ML INJ IV PRN ×2 (11:34→13:51)
--- NOTE | 2019-11-08 12:30 | Progress Note ---
Assessment and Plan A: 29 y.o. @ term, IOL d/t poly. P: Continue with pitocin per protocol. Subjective - Subjective Date of service: 11/08/19 (Pt has been sleeping and has no complaints at this time.) Principal diagnosis: IUP @ 40+3, IOL for poly Patient reports: movement normal, contractions, no new complaints, no loss of fluid, no vaginal bleeding Objective - Vital Signs Vital Signs: Vital Signs - 12hr 11/08/19 11/08/19 11/08/19 02:13 03:13 05:12 Temperature Pulse Rate 80 84 82 Respiratory Rate Blood Pressure 95/55 121/71 116/72 Blood Pressure [Left] O2 Sat by Pulse Oximetry 11/08/19 11/08/19 11/08/19 06:13 07:34 07:39 Temperature 98.6 F Pulse Rate 84 69 69 Respiratory 15 Rate Blood Pressure 129/76 109/58 Blood Pressure 109/50 [Left] O2 Sat by Pulse Oximetry 11/08/19 11/08/19 11/08/19 10:23 10:24 10:29 Temperature Pulse Rate 70 73 74 Respiratory Rate Blood Pressure 95/57 Blood Pressure [Left] O2 Sat by Pulse 94 95 93 Oximetry 11/08/19 11/08/19 11/08/19 10:34 10:38 10:39 Temperature Pulse Rate 74 69 75 Respiratory Rate Blood Pressure Blood Pressure [Left] O2 Sat by Pulse 94 94 93 Oximetry 11/08/19 11/08/19 11/08/19 10:44 10:49 10:54 Temperature Pulse Rate 71 70 73 Respiratory Rate Blood Pressure Blood Pressure [Left] O2 Sat by Pulse 94 94 94 Oximetry 11/08/19 11/08/19 11/08/19 10:55 10:59 11:12 Temperature Pulse Rate 70 69 77 Respiratory Rate Blood Pressure 122/73 Blood Pressure [Left] O2 Sat by Pulse 94 94 Oximetry 11/08/19 11/08/19 11/08/19 11:14 11:16 11:19 Temperature Pulse Rate 65 67 84 Respiratory Rate Blood Pressure Blood Pressure [Left] O2 Sat by Pulse 97 94 96 Oximetry 11/08/19 11/08/19 11/08/19 11:24 11:25 11:29 Temperature Pulse Rate 78 71 73 Respiratory Rate Blood Pressure Blood Pressure [Left] O2 Sat by Pulse 96 94 93 Oximetry 11/08/19 11/08/19 11/08/19 11:32 11:34 11:37 Temperature Pulse Rate 69 67 71 Respiratory 16 Rate Blood Pressure 122/79 Blood Pressure [Left] O2 Sat by Pulse 95 94 Oximetry 11/08/19 11/08/19 11/08/19 11:39 11:44 11:49 Temperature Pulse Rate 84 97 H 83 Respiratory Rate Blood Pressure Blood Pressure [Left] O2 Sat by Pulse 94 97 96 Oximetry 11/08/19 11/08/19 11/08/19 11:54 11:55 11:59 Temperature Pulse Rate 94 H 68 78 Respiratory Rate Blood Pressure Blood Pressure [Left] O2 Sat by Pulse 96 93 93 Oximetry 11/08/19 11/08/19 11/08/19 12:02 12:04 12:09 Temperature Pulse Rate 74 72 74 Respiratory Rate Blood Pressure Blood Pressure [Left] O2 Sat by Pulse 93 94 94 Oximetry 11/08/19 11/08/19 11/08/19 12:10 12:12 12:14 Temperature Pulse Rate 71 71 77 Respiratory Rate Blood Pressure 99/58 Blood Pressure [Left] O2 Sat by Pulse 94 94 Oximetry 11/08/19 11/08/19 12:19 12:24 Temperature Pulse Rate 73 73 Respiratory Rate Blood Pressure Blood Pressure [Left] O2 Sat by Pulse 94 94 Oximetry - Exam Breasts: deferred Lungs: Normal air movement Abdomen: Present: normal appearance Uterus: Present: normal FHR: category 1 Uterine Contraction Monitor Mode: External (Upon entering room, pt sleep.) Uterine Contraction Pattern: Irregular (Pitocin at 8.) Uterine Tone Measurement Phase: Resting Uterine Contraction Intensity: Mild Extremities: normal Deep Tendon Reflex Grade: Normal +2 - Labs Labs: Abnormal Labs 11/06/19 16:25 MCHC 35 H
[2019-11-08] MEDS ORDERED: METOCLOPRAMIDE 10 MG/2 ML INJ IV ONE (16:31)
[2019-11-08] MEDS ORDERED: FAMOTIDINE 20 MG/2 ML INJ IV ONE (16:31)
[2019-11-08] MEDS ORDERED: BICITRA ORAL LIQD 30ML PO ONE (16:31)
[2019-11-08] MEDS ORDERED: LACTATED RINGERS 1,000 ML IV SCH (17:00)
[2019-11-08] MEDS ORDERED: OXYTOCIN 20 UNIT/1000ML DRIP 20 UNITS/1,000 ML BAG IV SCH ×2 (17:00→19:00)
[2019-11-08] MEDS ORDERED: ceFAZolin/Water 2 GM/20 ML 2 GM/20 ML SYRINGE IV NR (17:00)
--- NOTE | 2019-11-08 17:08 | Anesthesia Consultation ---
Anesthesia Consult and Med Hx Date of service: 11/08/19 - Airway Anesthetic Teeth Evaluation: Good ROM Head & Neck: Adequate Mental/Hyoid Distance: Adequate Mallampati Class: Class II Intubation Access Assessment: Good - Pulmonary Exam CTA: Yes - Cardiac Exam Cardiac Exam: RRR - Pre-Operative Health Status ASA Pre-Surgery Classification: ASA2 Proposed Anesthetic Plan: Spinal - Pulmonary Hx Asthma: No COPD: No Hx Pneumonia: No - Cardiovascular System Hx Hypertension: No - Central Nervous System Hx Seizures: No Hx Psychiatric Problems: Yes (Anxiety, Depression) - Endocrine Hx Renal Disease: No Hx End Stage Renal Disease: No Hx Hypothyroidism: No Hx Hyperthyroidism: No - Hematic Hx Anemia: No Hx Sickle Cell Disease: No - Other Systems Hx Alcohol Use: No
--- NOTE | 2019-11-08 17:11 | Anesthesia Day of Surgery ---
Anesthesia Day of Surgery - Day of Surgery Patient Examined: Yes Patient H&P Reviewed: Yes Patient is NPO: Yes (clear liqueds at 1300)
[2019-11-08] MEDS ORDERED: HYDROmorphone 1 MG/1 ML INJ IV PRN ×2 (17:12)
[2019-11-08] MEDS ORDERED: ONDANSETRON 4 MG/2 ML INJ IV PRN (17:12)
[2019-11-08] MEDS ORDERED: NALOXONE 0.4 MG/1 ML INJ IV PRN ×2 (17:12→18:41)
[2019-11-08] MEDS ORDERED: PROMETHAZINE 25 MG TAB PO PRN (17:12)
[2019-11-08] MEDS ORDERED: PROMETHAZINE 25 MG RECT SUPP PR PRN (17:12)
[2019-11-08] MEDS ORDERED: DEXMEDETOMIDINE 200 MCG/2 ML VIAL IV ONE (17:23)
--- NOTE | 2019-11-08 17:42 | Event Note ---
Date: 11/08/19 Pt declines cx exams at this time and is requesting a primary c/s. All risk, benefits and alternatives were d/w pt and questions were addressed and answered. I did d/w my concerns of the size of the baby vs pt pelvis but that if she desired to continue the IOL the baby has done well and this would be an agreeable plan. Pt declines and desires c/s at this time. Consent signed and placed on the chart.
[2019-11-08] MEDS ORDERED: METHYLERGONOVINE MALEATE 0.2 MG/ML VIAL IM ONE (17:53)
[2019-11-08] MEDS ORDERED: METHYLERGONOVINE MALEATE 0.2 MG/ML VIAL IM PRN (17:53)
[2019-11-08] MEDS ORDERED: WATER FOR IRRIG STERILE 1,500 ML BOTTLE IR ONE (17:54)
[2019-11-08] MEDS ORDERED: SODIUM CHLORIDE 0.9% IRR 1,500 ML BOTTLE IR ONE (17:54)
[2019-11-08] MEDS ORDERED: ceFAZolin/STERILE WATER 2 GM/20 ML SYRINGE IV ONE (17:56)
[2019-11-08] MEDS ORDERED: KETOROLAC 30 MG/1 ML INJ ONE (18:14)
--- NOTE | 2019-11-08 18:38 | Post Anesthesia Evaluation ---
- Post Anesthesia Evaluation Patient Participated: Yes Airway Patent: Yes Stable Respiratory Function: Yes Nausea/Vomiting: No Temp > 96.8F: Yes Pain Manageable: Yes Adequeate Hydration: Yes Anesthesia Complications: No Block Receding Appropriately: Yes Patient on Ventilator: No
--- NOTE | 2019-11-08 18:39 | Operative Report ---
Operative Report Operative Report: Date of procedure: 11/08/2019 Pre-operative diagnosis: 40 weeks gestation Polyhydramnios Failed induction of labor Post-operative diagnosis: Same Procedure name(s): Primary low transverse section via Pfannenstiel skin incision Surgeon: Dr. Delgado [employer]: SHANEKA Anesthesia: Spinal EBL: 800 mL Urine output: 200 mL of clear urine out at end of procedure Fluids: 1500 mL Findings: Liveborn female weight 7 lbs. 5 oz. Apgars of 9 and 9 at one and 5 minutes Grossly normal fallopian tubes and ovaries bilaterally Double nuchal cord easily reduced Indications: Patient admitted for induction of labor for polyhydramnios. Patient underwent approximately 2 days of induction. Patient did not have any cervical change. Patient no longer desired to have cervical exams and desired to proceed with primary section for failure of induction. All risks benefits and alternatives were discussed with the patient. Consents were signed and placed on the chart. Procedure: Patient was taking to the operating room. Patient was then prepped and draped in sterile fashion after anesthesia was found to be adequate. A low transverse skin incision was made with the scalpel and carried down to the underlying layer of fascia with the Bovie. The fascia was then incised in the midline and this incision was extended bilaterally with the Bovie. The superior aspect of the fascia was grasped with Kourtney clamps tented upward and dissected off of the anterior rectus muscles with the scalpel. In similar fashion the inferior aspect of the fascia was grasped with Kourtney clamps tented upward and dissected off of the anterior rectus muscles. The rectus muscles were then bluntly divided in the midline. The peritoneum was identified and entered into sharply. The bladder blade was placed. The bladder flap was created using the Metzenbaum scissors. The bladder blade was replaced. A lower transverse uterine incision was made with the scalpel and extended bilaterally with the bandage scissors. Artificial rupture of membranes was performed yielding clear amniotic fluid. Copious amount of amniotic fluid was noted upon artificial rupture membranes. The infant's head was then delivered atraumatically. Nuchal cord 2 were easily reduced. The anterior shoulder and rest of infant delivered without difficulty. The umbilical cord was clamped x2. The cord was cut. The infant was then placed in sterile bassinet. The cord blood was collected. The placenta was manually extracted in its entirety. The uterus was exteriorized and cleared of all clots and debris. The uterine incision was closed using 0 Vicryl in a running locking fashion. A second imbricating layer of the same suture was then created. The posterior cul-de-sac was copiously irrigated. The uterus was returned to the abdomen. The gutters were also irrigated. The anterior rectus muscles were reapproximated using 3-0 Vicryl. The anterior rectus fascia was reapproximated using 0 Vicryl in a running fashion. The subcuticular fat was reapproximated using 2-0 Vicryl in a running fashion. The skin was reapproximated with 4-0 Monocryl in a subcuticular stitch. The patient tolerated the procedure well. Sponge lap and needle counts were all correct x3. Patient was taken to the recovery room awake and in stable condition.
[2019-11-08] MEDS ORDERED: WITCH HAZEL/ GLYCERIN PAD TP PRN (18:41)
[2019-11-08] MEDS ORDERED: SIMETHICONE 80 MG CHEW TAB PO PRN (18:41)
[2019-11-08] MEDS ORDERED: LANOLIN/ZINC/DIMETHICONE (LANSINOH) 7 GM TP PRN (18:41)
[2019-11-08] MEDS ORDERED: ACETAMINOPHEN 325 MG TAB PO PRN (18:41)
[2019-11-08] MEDS ORDERED: D5W/LACTATED RINGERS 1,000 ML IV SCH (19:00)
[2019-11-08] MEDS: KETOROLAC 30 MG/1 ML INJ IV PRN (19:34)
--- NOTE | 2019-11-08 23:07 | Event Note ---
Date: 11/08/19 pt c/o having burning at the incision site. She request to be placed on the fentanly as she states it worked better for her when she wain labor. She was advised that goal is not to have zero pain but that the discomfort will be tolerable. I d/w po tylenol 1000mg at this time and when next scheduled dose of IV meds to be given to give the fentanly instead of diluaded. Pt expressed understanding and agrees with plan of care. Plan of care also d/w JOYCE Regalado and again all questions were addressed and answered.
[2019-11-08] MEDS ORDERED: ACETAMINOPHEN 500 MG TAB PO ONE (23:15)
[2019-11-09] MEDS: fentaNYL 100 MCG/2 ML INJ IV SCH ×4 (00:14→06:15)
[2019-11-09] MEDS: ceFAZolin/NS 1 GM/50 ML 1 GM/50 ML BAG IV SCH ×2 (02:03→08:10)
[2019-11-09] MEDS: KETOROLAC 30 MG/1 ML INJ IV PRN ×2 (02:04→08:10)
[2019-11-09] MEDS ORDERED: TETANUS,DIPH,PERTUSS(ACELL) VACCINE 0.5 ML SYRINGE IM ONE (06:00)
--- NOTE | 2019-11-09 06:30 | Progress Note ---
<GABRIEL ACOSTA - Last Filed: 11/09/19 06:25> Assessment and Plan - Patient Problems (1) delivery delivered Onset Date: ~11/08/19 Current Visit: Yes Status: Acute Plan to address problem: Pt appears to not be in distress @ this time. Asking for pain medication Q2hr as ordered. Encouraged pt to rest, use IS, when up wear binder. Will transition to po meds later this AM. VSS FF @ umb Lochia small Dressing D&I H&H pending. P: continue pathway Advance as tolerated. Close monitoring of urine output. Subjective - Subjective Date of service: 11/09/19 (Pt does not appear to be in distress but is c/o pain) Principal diagnosis: 12hours s/p section Interval history: EDC Confirmation: 11/05/2019 Gestational Age: 11 4/7 weeks Past History : 1 Past Medical History: Reviewed history from 01/14/2017 and no changes required: Iccthyosis. Anxiety/depression Past Surgical History: Reviewed history from 06/29/2014 and no changes required: Left wrist abscess (2012) LEEP 2014 Past Medical History Surgery (Non-rn gyn): Left wrist abscess (2012) LEEP 2014 Abnormal PAP: positive, Leep 2014 Social Hx: hx of anxiety issues and self worth issues no current ETOH/Drugs/Smoking Smoking History: Patient currently smokes every day. Infection History Hx of STD: chlamydia HIV Risk Eval: no Hepatitis B Risk Eval: low risk Personal hx. of genital herpes: no Partner hx. of genital herpes: no Rash, Viral, or Febrile illness since last LMP? no Varicella/Chicken Pox Status: Previous Disease Genetic History Congenital Heart Defect: Mom: no Sri Disease: Mom: no Thalassemia Mom: no Dad: no Neural Tube Defect Mom: no Dad: no Down's Syndrome Mom: no Dad: no Dom-Sachs Mom: no Dad: no Sickle Cell Disease/Trait Mom: no Dad: no Hemophilia Mom: no Dad: no Muscular Dystrophy Mom: no Dad: no Cystic Fibrosis Mom: no Dad: no [place] Chorea Mom: no Dad: no Mental Retardation Mom: no Dad: no Fragile X Mom: no Dad: no Other Genetic/Chromosomal Disorder Mom: no Dad: no Child w/other defect Mom: no Dad: no Enviromental Exposures Xray Exposure: no Medication, drug, or alcohol use since LMP: no Chemical/Other Exposure: no Exposure to Cat Liter: no Hx of Parvovirus (Fifth Disease): no Occupational Exposure to Children: none Active Medications (reviewed today): AMBIEN TABLET (ZOLPIDEM TARTRATE TABS) LEVORA 0.15/30 (28) 0.15-30 MG-MCG ORAL TABLET (LEVONORGESTREL-ETHINYL ESTRAD) 1 po q day as directed LEVORA 0.15/30 (28) 0.15-30 MG-MCG ORAL TABLET (LEVONORGESTREL-ETHINYL ESTRAD) 1 po q day as directed XANAX () Current Allergies (reviewed today): TRAMADOL HCL (TRAMADOL HCL TABS) (Critical) Patient reports: other (urine out put low 30cc/hr dark yellow no evidence blood will give 300cc bolus and encouraged po hydration) : doing well Objective - Vital Signs Latest vital signs: Vital Signs Temp Pulse Resp BP BP Pulse Ox 11/09/19 01:07 98.5 F 65 20 109/64 95 11/08/19 20:49 97.6 F 66 20 102/45 98 11/08/19 19:30 51 L 18 110/76 97 11/08/19 19:15 52 L 13 109/68 97 11/08/19 19:00 50 L 18 109/64 97 11/08/19 18:55 51 L 14 106/56 98 11/08/19 18:50 50 L 14 108/61 98 11/08/19 18:45 51 L 12 101/50 98 11/08/19 18:41 51 L 12 101/41 98 11/08/19 18:38 97.6 F 51 L 10 L 113/50 96 11/08/19 16:12 71 120/72 11/08/19 15:27 64 132/70 11/08/19 15:03 64 94 11/08/19 15:01 74 93 11/08/19 14:56 65 93 11/08/19 14:51 69 92 11/08/19 14:46 69 92 11/08/19 14:41 68 92 11/08/19 14:36 68 91 11/08/19 14:31 69 92 11/08/19 14:26 64 94 11/08/19 14:21 64 92 11/08/19 14:17 69 94 11/08/19 14:16 67 92 11/08/19 14:13 62 102/59 11/08/19 14:11 66 94 11/08/19 14:10 64 93 11/08/19 14:06 76 94 11/08/19 14:03 76 94 11/08/19 14:01 75 95 11/08/19 13:57 71 94 11/08/19 13:56 69 95 11/08/19 13:51 68 18 96 11/08/19 13:46 71 96 11/08/19 13:41 64 97 11/08/19 13:36 75 96 11/08/19 13:31 77 97 11/08/19 13:26 69 98 11/08/19 13:14 77 96 11/08/19 13:09 70 95 11/08/19 13:08 70 94 11/08/19 13:04 74 95 11/08/19 13:03 76 94 11/08/19 12:59 73 94 11/08/19 12:58 68 94 11/08/19 12:54 79 95 11/08/19 12:53 76 94 11/08/19 12:49 66 94 11/08/19 12:48 72 94 11/08/19 12:44 71 94 11/08/19 12:41 72 94 11/08/19 12:39 72 94 11/08/19 12:34 69 94 11/08/19 12:29 71 94 11/08/19 12:24 73 94 11/08/19 12:19 73 94 11/08/19 12:14 77 94 11/08/19 12:12 71 99/58 11/08/19 12:10 71 94 11/08/19 12:09 74 94 11/08/19 12:04 72 94 11/08/19 12:02 74 93 11/08/19 11:59 78 93 11/08/19 11:55 68 93 11/08/19 11:54 94 H 96 11/08/19 11:49 83 96 11/08/19 11:44 97 H 97 11/08/19 11:39 84 94 11/08/19 11:37 71 94 11/08/19 11:34 67 16 95 11/08/19 11:32 69 122/79 11/08/19 11:29 73 93 11/08/19 11:25 71 94 11/08/19 11:24 78 96 11/08/19 11:19 84 96 11/08/19 11:16 67 94 11/08/19 11:14 65 97 11/08/19 11:12 77 122/73 11/08/19 10:59 69 94 11/08/19 10:55 70 94 11/08/19 10:54 73 94 11/08/19 10:49 70 94 11/08/19 10:44 71 94 11/08/19 10:39 75 93 11/08/19 10:38 69 94 11/08/19 10:34 74 94 11/08/19 10:29 74 93 11/08/19 10:24 73 95/57 95 11/08/19 10:23 70 94 11/08/19 07:39 98.6 F 69 15 109/50 11/08/19 07:34 69 109/58 Intake and Output 11/08/19 11/08/19 11/09/19 14:59 22:59 06:59 Intake Total 7.9 1820.133 Output Total 300 150 Balance 7.9 1520.133 -150 Intake: IV 7.9 1820.133 PITOCin/NS 30 UNIT/500ML 7.9 20.133 30 units In 500 ml @ 2 mls/hr IV TITR BATOOL Rx#: [id number] Output: Urine 300 150 Indwelling Catheter 150 Other: Total, Output Amount 150 - Exam Breasts: Present: normal Cardiovascular: Present: Regular rate Lungs: Present: Normal air movement Abdomen: Present: normal appearance, soft, normal bowel sounds Vulva: both: normal Uterus: Present: normal, fundal height at umbilicus Extremities: Present: normal Deep Tendon Reflex Grade: Normal +2 Incision: Present: normal, dry, intact, dressed (D&I) <SAMPSONRODOLFOA D - Last Filed: 11/09/19 08:42> Assessment and Plan Pain better with current regimen. Pain management and expectations along with plan of care extensively discussed with patient with Terri RN in room. Questions were encouraged and answered. She voiced understanding - Patient Problems (1) delivery delivered Onset Date: ~11/08/19 Current Visit: Yes Status: Acute (2) Ichthyosis Current Visit: Yes Status: Acute (3) Smoker Current Visit: Yes Status: Acute (4) Migraine Current Visit: No Status: Acute Objective - Vital Signs Latest vital signs: Vital Signs Temp Pulse Resp BP BP Pulse Ox 11/09/19 05:15 98.2 F 82 20 116/64 97 11/09/19 01:07 98.5 F 65 20 109/64 95 11/08/19 20:49 97.6 F 66 20 102/45 98 11/08/19 19:30 51 L 18 110/76 97 11/08/19 19:15 52 L 13 109/68 97 11/08/19 19:00 50 L 18 109/64 97 11/08/19 18:55 51 L 14 106/56 98 11/08/19 18:50 50 L 14 108/61 98 11/08/19 18:45 51 L 12 101/50 98 11/08/19 18:41 51 L 12 101/41 98 11/08/19 18:38 97.6 F 51 L 10 L 113/50 96 11/08/19 16:12 71 120/72 11/08/19 15:27 64 132/70 11/08/19 15:03 64 94 11/08/19 15:01 74 93 11/08/19 14:56 65 93 11/08/19 14:51 69 92 11/08/19 14:46 69 92 11/08/19 14:41 68 92 11/08/19 14:36 68 91 11/08/19 14:31 69 92 11/08/19 14:26 64 94 11/08/19 14:21 64 92 11/08/19 14:17 69 94 11/08/19 14:16 67 92 11/08/19 14:13 62 102/59 11/08/19 14:11 66 94 11/08/19 14:10 64 93 11/08/19 14:06 76 94 11/08/19 14:03 76 94 11/08/19 14:01 75 95 11/08/19 13:57 71 94 11/08/19 13:56 69 95 11/08/19 13:51 68 18 96 11/08/19 13:46 71 96 11/08/19 13:41 64 97 11/08/19 13:36 75 96 11/08/19 13:31 77 97 11/08/19 13:26 69 98 11/08/19 13:14 77 96 11/08/19 13:09 70 95 11/08/19 13:08 70 94 11/08/19 13:04 74 95 11/08/19 13:03 76 94 11/08/19 12:59 73 94 11/08/19 12:58 68 94 11/08/19 12:54 79 95 11/08/19 12:53 76 94 11/08/19 12:49 66 94 11/08/19 12:48 72 94 11/08/19 12:44 71 94 11/08/19 12:41 72 94 11/08/19 12:39 72 94 11/08/19 12:34 69 94 11/08/19 12:29 71 94 11/08/19 12:24 73 94 11/08/19 12:19 73 94 11/08/19 12:14 77 94 11/08/19 12:12 71 99/58 11/08/19 12:10 71 94 11/08/19 12:09 74 94 11/08/19 12:04 72 94 11/08/19 12:02 74 93 11/08/19 11:59 78 93 11/08/19 11:55 68 93 11/08/19 11:54 94 H 96 11/08/19 11:49 83 96 11/08/19 11:44 97 H 97 11/08/19 11:39 84 94 11/08/19 11:37 71 94 11/08/19 11:34 67 16 95 11/08/19 11:32 69 122/79 11/08/19 11:29 73 93 11/08/19 11:25 71 94 11/08/19 11:24 78 96 11/08/19 11:19 84 96 11/08/19 11:16 67 94 11/08/19 11:14 65 97 11/08/19 11:12 77 122/73 11/08/19 10:59 69 94 11/08/19 10:55 70 94 11/08/19 10:54 73 94 11/08/19 10:49 70 94 11/08/19 10:44 71 94 11/08/19 10:39 75 93 11/08/19 10:38 69 94 11/08/19 10:34 74 94 11/08/19 10:29 74 93 11/08/19 10:24 73 95/57 95 11/08/19 10:23 70 94 Intake and Output 11/08/19 11/09/19 11/09/19 22:59 06:59 14:59 Intake Total 1820.133 120 Output Total 300 150 Balance 1520.133 -30 Intake: IV 1820.133 PITOCin/NS 30 UNIT/500ML 20.133 30 units In 500 ml @ 2 mls/hr IV TITR BATOOL Rx#: [id number] Intake, Free Water 120 Output: Urine 300 150 Indwelling Catheter 150 Other: Total, Output Amount 150 - Labs Labs: Abnormal lab results 11/09/19 Range/Units 07:39 Hgb 10.0 L (10.1-14.3) gm/dl Hct 29.7 L (30.3-42.9) %
[2019-11-09 08:17] LABS: Hematocrit 29.7 % (30.3-42.9)
[2019-11-09] MEDS ORDERED: ACETAMINOPHEN 325 MG TAB PO PRN (08:21)
[2019-11-09] MEDS ORDERED: ACETAMINOPHEN 325 MG TAB PO ONE (11:30)
[2019-11-09] MEDS: IBUPROFEN 800 MG TAB PO PRN ×2 (14:00→20:26)
[2019-11-09] MEDS: HYDROcodone/ACETAMINOPHEN 5-325 MG TAB PO PRN ×3 (15:08→23:30)
[2019-11-09] MEDS: FERROUS SULFATE 325 MG TAB PO SCH (15:10)
[2019-11-10] MEDS: IBUPROFEN 800 MG TAB PO PRN ×4 (02:07→21:55)
[2019-11-10] MEDS: HYDROcodone/ACETAMINOPHEN 5-325 MG TAB PO PRN ×6 (03:29→23:49)
--- NOTE | 2019-11-10 08:40 | Progress Note ---
Assessment and Plan patient resting, reports is going well. incision D&I, lochia scant, VSSAF, H&H stable. Patient requests to stay until tomorrow d/t pain when sitting up from laying position. Normal postop expectations reviewed. - Patient Problems (1) Ichthyosis Current Visit: Yes Status: Acute (2) delivery delivered Onset Date: ~11/08/19 Current Visit: Yes Status: Acute Subjective - Subjective Date of service: 11/10/19 Principal diagnosis: postop day #2 Patient reports: appetite normal, voiding normally, flatus, ambulating normally [place]: doing well, nursing well Objective - Vital Signs Latest vital signs: Vital Signs Temp Pulse Resp BP Pulse Ox 11/10/19 03:29 20 11/10/19 02:07 98.2 F 72 18 108/65 96 11/09/19 23:30 20 11/09/19 20:26 20 11/09/19 19:23 18 11/09/19 16:40 98.7 F 65 18 117/74 95 11/09/19 12:34 97.6 F 79 18 112/70 95 Intake and Output 11/09/19 11/10/19 11/10/19 23:59 07:59 15:59 Intake Total 840 Output Total 400 Balance 440 Intake: Oral 360 Intake, Free Water 480 Output: Urine 400 Void 400 Other: Total, Intake Amount 360 Total, Output Amount 400 # Voids Void 3 - Exam Breasts: Present: normal, Cardiovascular: Present: Regular rate Lungs: Present: Clear to auscultation, Normal air movement Abdomen: Present: normal appearance, soft, normal bowel sounds. Absent: distention, tenderness Vulva: both: normal Uterus: Present: normal, firm, fundal height at umbilicus Extremities: Present: normal Incision: Present: normal, dry, intact
[2019-11-10] MEDS: FERROUS SULFATE 325 MG TAB PO SCH (09:50)
[2019-11-11] MEDS: HYDROcodone/ACETAMINOPHEN 5-325 MG TAB PO PRN (04:21)
[2019-11-11] MEDS: IBUPROFEN 800 MG TAB PO PRN ×2 (05:59→10:31)
--- NOTE | 2019-11-11 08:08 | Discharge Summary ---
Providers - Providers Date of Admission: 11/06/19 14:33 Date of discharge: 11/11/19 (pt ddesires d/c) Attending physician: FARHAN MYERS Primary care physician: FARHAN MYERS Hospitalization Reason for admission: induction of labor, IUP at term Delivery: Procedure: primary low transverse Episiotomy: none Laceration: none Incision: normal, dry, intact Other procedures: none complications: none Discharge diagnosis: IUP at term delivered [place] baby: female Hospital course: Uncomplicated section failed IOL Pt w/o complaint Desires d/c VSS FF below umb Lochia scant Incision D&I H&H stable No s/sx of anemia Doing well s/p c/s P: d/c today with instructions RTO 1 week Postop care RX given @ d/c Condition at discharge: Good Disposition: DC-01 TO HOME OR SELFCARE - Discharge Diagnoses (1) delivery delivered Status: Acute Comment: RTO 1 week Postop Care Plan - Discharge Medications Prescriptions: Docusate Sodium [Colace] 100 mg PO BID PRN #60 capsule PRN Reason: Constipation Lidocain2.5%/Prilocai2.5% [Emla] 2 gm TP ONCE #1 tube Ferrous Sulfate [Feosol 325 MG tab] 325 mg PO QDAY #60 tablet Ibuprofen [Motrin 800 MG tab] 800 mg PO Q8HR PRN #30 tablet PRN Reason: Pain, Moderate (4-6) oxyCODONE /ACETAMINOPHEN [Percocet 5/325] 1 tab PO Q4HR #30 tab - Provider Discharge Summary Activity: routine, no sex for 6 weeks, no heavy lifting 4 weeks, no strenuous exercise Diet: routine Instructions: routine Additional instructions: [] Smoking cessation referral if applicable(refer to patient education folder for contact #) [] Refer to [facility]'s [facility] Booklet Call your doctor immediately for: * Fever > 100.5 * Heavy vaginal bleeding ( >1 pad per hour) * Severe persistent headache * Shortness of breath * Reddened, hot, painful area to leg or breast * Drainage or odor from incision. * Keep incision clean and dry at all times and follow doctor's instructions regarding bathing/showering - Follow up plan Follow up: FARHAN MYERS MD [Primary Care Provider] - 7 Days (Congratulations! Please call [phone] to schedule your postoperative visit in 1 week. Take medications as prescribed. Call with concerns.)
[2019-11-11 10:23] VITALS: BP 136/78
== END 2019-11-11 15:30 | disposition home or self-care (01) | DRG 765 ==
LOC: LD 11-06 14:33 → APU 11-08 20:07 → OB 11-08 21:00
PROVIDERS: ADMIT Obstetrics & Gynecology; ATTEND Obstetrics & Gynecology
PROC: 10D00Z1 Extraction of Products of Conception, Low, Open Approach (ICD-10-PCS; principal; 2019-11-08)
PROC: 3E0234Z Introduction of Serum, Toxoid and Vaccine into Muscle, Percutaneous Approach (ICD-10-PCS; 2019-11-09)
DX: O99.824 Streptococcus B carrier state complicating childbirth (principal); O40.3XX0 Polyhydramnios, third trimester, not applicable or unspecified; O99.354 Diseases of the nervous system complicating childbirth; O99.344 Other mental disorders complicating childbirth; F41.8 Other specified anxiety disorders; O99.334 Smoking (tobacco) complicating childbirth; F17.200 Nicotine dependence, unspecified, uncomplicated; G35 Multiple sclerosis; O61.9 Failed induction of labor, unspecified; Z3A.40 40 weeks gestation of pregnancy; Z37.0 Single live birth; Q80.9 Congenital ichthyosis, unspecified; Z23 Encounter for immunization
CPT/HCPCS: 36415; 85014; 85018; 85027; 86850; 86900; 86901; 88307; 90471; 90715; G0378; J0290; J0690; J1170; J1885; J2210; J2405; J2590; J2765; J3010; J3490; J7120; J7121